=== PATIENT | female | born 1995 | race Hispanic/Latino ===

== ENCOUNTER 2018-10-09 11:45 | Emergency (ER) | payer OTHER ==
[2018-10-09 12:13] VITALS: RESP 18; TEMP 98.7
[2018-10-09 13:17] LABS: BASO # 0.1 K/uL (0.0-0.2); BASO % 0.6 % (0.0-2.0); EOS % 0.4 % (0.0-4.0); HEMOGLOBIN 14.1 g/dL (12.0-16.0); LYMPH # 1.7 K/uL (1.0-4.3); LYMPH % 17.6 % (20.0-40.0); MEAN CORPUSCULAR HEMOGLOBIN 30.5 pg (27.0-31.0); MEAN CORPUSCULAR HGB CONC 33.1 g/dL (33.0-37.0); MEAN PLATELET VOLUME 7.2 fl (7.2-11.7); MONO # 0.5 K/uL (0.0-0.8); MONO % 5.6 % (0.0-10.0); NEUT # 7.2 K/uL (1.8-7.0); NEUT % 75.8 % (50.0-75.0); NRBC % 0.1 % (0.0-0.0); RBC 4.64 Mil/uL (3.80-5.20); RED CELL DISTRIBUTION WIDTH 13.4 % (11.5-14.5); WHITE BLOOD COUNT 9.5 K/uL (4.8-10.8)
[2018-10-09 13:21] LABS: SQUAMOUS EPITHIAL 1 /hpf (0-5); URINE AMORPHOUS SEDIMENT RARE /ul (<OCC); URINE BACTERIA OCC (<OCC); URINE BILIRUBIN NEGATIVE (NEGATIVE); URINE BLOOD SMALL (NEGATIVE); URINE CLARITY SLIGHTY-CLOUDY (Clear); URINE COLOR YELLOW (YELLOW); URINE GLUCOSE (UA) NEG (NEGATIVE); URINE LEUKOCYTE ESTERASE NEG Leu/uL (Negative); URINE PROTEIN NEGATIVE (NEGATIVE); URINE UROBILINOGEN 0.2-1.0 mg/dL (0.2-1.0)
[2018-10-09 13:40] LABS: ALB/GLOB RATIO 1.4 (1.0-2.1); ALBUMIN 4.9 g/dL (3.5-5.0); ALT/SGPT 21 U/L (9-52); AST/SGOT 27 U/L (14-36); BLOOD UREA NITROGEN 14 mg/dl (7-17); CALCIUM 9.9 mg/dL (8.4-10.2); GFR NON-AFRICAN AMERICAN > 60
--- NOTE | 2018-10-09 13:46 | ED PDOC ---
HPI: General Adult Time Seen by Provider: 10/09/18 12:20 Chief Complaint (Nursing): Weakness/Neurological Deficit Chief Complaint (Provider): Weakness History Per: Patient History/Exam Limitations: no limitations Additional Complaint(s): 23yo female, comes to ER reporting 2 days of anxiety, numbness on left side, and today with pain to her right arm. Patient states the symptoms are similar to the past when she was diagnosed with anxiety. Patient was seen at an urgent care and was told to come to ER for further evaluation. Patient is currently asymptomatic, denies any chest pain, shortness of breath, headache, weakness or trauma. Past Medical History Reviewed: Historical Data, Nursing Documentation, Vital Signs Vital Signs: Last Vital Signs Temp 98.7 F 10/09/18 12:10 Pulse 97 H 10/09/18 12:10 Resp 18 10/09/18 12:10 BP 131/93 H 10/09/18 12:10 Pulse Ox 99 10/09/18 12:10 - Medical History PMH: Anxiety - Family History Family History: States: No Known Family Hx - Allergies Allergies/Adverse Reactions: Allergies Allergy/AdvReac Type Severity Reaction Status Date / Time No Known Allergies Allergy Verified 10/09/18 12:09 Review of Systems ROS Statement: Except As Marked, All Systems Reviewed And Found Negative Cardiovascular: Negative for: Chest Pain Respiratory: Negative for: Shortness of Breath Neurological: Positive for: Weakness. Negative for: Headache Psych: Positive for: Anxiety Physical Exam - Reviewed Nursing Documentation Reviewed: Yes Vital Signs Reviewed: Yes - Physical Exam Appears: Positive for: Non-toxic, No Acute Distress Skin: Positive for: Normal Color Eye Exam: Positive for: Normal appearance, EOMI, PERRL Neck: Positive for: Normal, Painless ROM, Supple Cardiovascular/Chest: Positive for: Regular Rate, Rhythm. Negative for: Tachycardia Respiratory: Positive for: Normal Breath Sounds. Negative for: Respiratory Distress Pulses-Radial (L): 2+ Pulses-Radial (R): 2+ Extremity: Positive for: Normal ROM Neurological/Psych: Positive for: Awake, Alert, Normal Tone, Symmetric/Intact Strength (equal biomechanical engineer strength bilaterally), Oriented (x 3), Mood/Affect (calm, cooperative, answering questions appropriately) - Laboratory Results Result Diagrams: 10/09/18 13:10 10/09/18 13:10 Lab Results: Urine Color Yellow (YELLOW) 10/09/18 13:10 Urine Clarity Slighty-cloudy (Clear) 10/09/18 13:10 Urine pH 7.0 (5.0-8.0) 10/09/18 13:10 Ur Specific [place] 1.010 (1.003-1.030) 10/09/18 13:10 Urine Protein Negative mg/dL (NEGATIVE) 10/09/18 13:10 Urine Glucose (UA) Neg mg/dL (NEGATIVE) 10/09/18 13:10 Urine Ketones Negative mg/dL (NEGATIVE) 10/09/18 13:10 Urine Blood Small (NEGATIVE) 10/09/18 13:10 Urine Nitrate Negative (NEGATIVE) 10/09/18 13:10 Urine Bilirubin Negative (NEGATIVE) 10/09/18 13:10 Urine Urobilinogen 0.2-1.0 mg/dL (0.2-1.0) 10/09/18 13:10 Ur Leukocyte Esterase Neg Vahid/uL (Negative) 10/09/18 13:10 Urine RBC (Auto) 1 /hpf (0-3) 10/09/18 13:10 Ur Squamous Epith Cells 1 /hpf (0-5) 10/09/18 13:10 Amorphous Sediment Rare /ul (<OCC) H 10/09/18 13:10 Urine Bacteria Occ (<OCC) H 10/09/18 13:10 - ECG ECG: Positive for: Interpreted By Ne ECG Rhythm: Positive for: Sinus Tachycardia. Negative for: ST/T Changes Rate: 112 O2 Sat by Pulse Oximetry: 99 (RA) Pulse Ox Interpretation: Normal Medical Decision Making Medical Decision Making: Impression: Anxiety, numbness, resolved Plan: -- Labs -- CT Head -- EKG -- Urinalysis On re-evaluation, pt. reports good relief of numbness and tingling. Reports also feeling less anxious. Repeat neuro exam is non-focal. Pt. left ED prior to getting discharge instructions. Scribe Attestation: Documented by Soraya Gay acting as a scribe for MICHAEL Osuna. Provider Scribe Attestation: All medical record entries made by the Scribe were at my direction and personally dictated by me. I have reviewed the chart and agree that the record accurately reflects my personal performance of the history, physical exam, medical decision making, and the department course for this patient. I have also personally directed, reviewed, and agree with the discharge instructions and disposition. Disposition - Clinical Impression Clinical Impression: Anxiety - Patient ED Disposition Is Patient to be Admitted: No - Disposition Disposition: Routine/Home Disposition Time: 15:20 Condition: IMPROVED Instructions: Anxiety, Adult (DC) Forms: [employer] (Lithuanian)
--- NOTE | 2018-10-09 15:04 | CT ---
Date of service: 10/09/2018 PROCEDURE: CT HEAD WITHOUT CONTRAST. HISTORY: numbness COMPARISON: None available. TECHNIQUE: Axial computed tomography images were obtained through the head/brain without intravenous contrast. Radiation dose: Total exam DLP = 794.87 mGy-cm. This CT exam was performed using one or more of the following dose reduction techniques: Automated exposure control, adjustment of the mA and/or kV according to patient size, and/or use of iterative reconstruction technique. FINDINGS: HEMORRHAGE: No intracranial hemorrhage. BRAIN: Normal can-white matter differentiation and density are appreciated throughout the cerebrum and cerebellum with the brainstem appearing unremarkable as well. There is no mass effect. There is no suspicious extra-axial fluid collection and the midline brain anatomy appears diffusely unremarkable. VENTRICLES: Unremarkable. No hydrocephalus. CALVARIUM: Unremarkable. PARANASAL SINUSES: Unremarkable as visualized. No significant inflammatory changes. MASTOID AIR CELLS: Unremarkable as visualized. No inflammatory changes. OTHER FINDINGS: None. IMPRESSION: Unremarkable unenhanced head CT.
[2018-10-09 16:28] VITALS: BP 132/86
[2018-10-09 16:51] VITALS: O2SAT 99
[2018-10-09 19:05] VITALS: PULSE 112
--- NOTE | 2018-10-09 19:13 | CARD ---
APPROVED REPORT Date of service: 10/09/2018 EKG Measurement Heart [id number] <Conclusion> Sinus tachycardia Nonspecific ST-T changes Abnormal ECG
== END 2018-10-09 15:24 | disposition home or self-care (01) ==
LOC: H.ER 11:45
DX: F41.9 Anxiety disorder, unspecified (principal); M62.81 Muscle weakness (generalized); R20.2 Paresthesia of skin